=== PATIENT | female | born 1950 | race Caucasian/White ===

== ENCOUNTER 2017-07-08 06:43 | Emergency (ER) | payer MEDICARE ==
[~2017-07-08] VITALS: Ht 157.5 cm; Wt 87.1 kg
[~2017-07-08 06:43] MED LIST: LORT7.5T3 PO; Z.0.NO CURRENT MEDS
[2017-07-08 06:47] VITALS: BP 176/94; PULSE 94; RESP 18; TEMP 98.2; O2SAT 99
[2017-07-08] MEDS ORDERED: TYLE325T PO (07:05)
--- NOTE | 2017-07-08 07:08 | PD ---
HPI Chief Complaint: Cold / Flu Symptoms Time Seen by Provider: 07:03 Travel History International Travel<30 days: No Contact w/Intl Traveler<30days: No Traveled to known affect area: No History of Present Illness HPI 67-year-old female presents to the emergency department complaint of cough shortness of breath and wheezing for the past week to week and a half. Patient has not noticed a fever. Patient has had cough productive of collazo phlegm. Patient has prior history of bronchitis. Patient has history of hypothyroidism and is prescribed levothyroxine. Patient did not have the flu vaccine. Patient does not report any nausea vomiting abdominal pain diarrhea myalgias arthralgias dysuria frequency urgency. Patient only noticed chest discomfort with coughing. Patient denies tobacco use. PFSH Past Medical History Narrative Medical Bronchitis hypothyroidism; no surgeries; no tobacco use; nursing notes reviewed Medical History: Denies Significant Hx Diminished Hearing: No Immunizations Current: Yes Influenza Vaccination: No ?: Not Menopausal: Yes Past Surgical History Surgical History: No Previous Surgery Social History Alcohol Use: No Tobacco Use: No Substance Use: No Allergies-Medications (Allergen,Severity, Reaction): Coded Allergies: Sulfa (Sulfonamide Antibiotics) (Unverified Allergy, Intermediate, EYES SWOLLEN, 07/08/17) Reported Meds & Prescriptions Reported Meds & Active Scripts Active Zithromax Z-Tello (Azithromycin) 250 Mg Dspk 250 Mg PO DIRECTED 500 MG (2 tabs) day 1, then 1 tab days 2-5. Ventolin Hfa 18 GM Inh (Albuterol Sulfate) 90 Mcg/Act Aer 2 Puff INH Q4-6H PRN Medrol Dosepak (Methylprednisolone) 4 Mg Dspk 4 Mg PO DIRECTED Per Pharmacist direction Reported Tylenol (Acetaminophen) 325 Mg Tab 650 Mg PO Q4H PRN Narrative Medication Levothyroxine Review of Systems Except as stated in HPI: all other systems reviewed are Neg General / Constitutional: No: Fever, Chills HENT: Positive: Congestion Cardiovascular: Positive: Chest Pain or Discomfort (with cough) Respiratory: Positive: Cough, Shortness of Breath, Wheezing, No: Orthopnea, Hemoptysis, Pleuritic Pain Gastrointestinal: No: Nausea, Vomiting, Diarrhea, Abdominal Pain Genitourinary: No: Dysuria, Flank Pain Musculoskeletal: No: Myalgias, Arthralgias, Edema Skin: No Rash Neurologic: No: Weakness Psychiatric: No: Anxiety Hematologic/Lymphatic: No: Lymph Node Enlargement Physical Exam Narrative GENERAL: Well-developed well-nourished female no acute distress no respiratory distress SKIN: Warm and dry. HEAD: Normocephalic. EYES: No scleral icterus. No injection or drainage. ENT: Mucous membranes moist airway is patent NECK: Supple, trachea midline. No JVD or lymphadenopathy. CARDIOVASCULAR: Regular rate and rhythm without murmurs, gallops, or rubs. RESPIRATORY: Breath sounds equal bilaterally with few end expiratory wheezes. No accessory muscle use. GASTROINTESTINAL: Abdomen soft, non-tender, nondistended. MUSCULOSKELETAL: No cyanosis, or edema. BACK: Nontender without obvious deformity. No CVA tenderness. Data Data Last Documented VS Vital Signs Date Time Temp Pulse Resp B/P (MAP) Pulse Ox O2 Delivery O2 Flow Rate FiO2 07/08/17 06:47 98.2 94 18 176/94 (121) 99 Orders Orders Influenzae A/B Antigen (07/08/17 07:03) Chest, Single Ap (07/08/17 ) Albuterol-Ipratropium Neb (Duoneb Neb) (07/08/17 07:15) MDM Medical Decision Making Medical Screen Exam Complete: Yes Emergency Medical Condition: Yes Medical Record Reviewed: Yes Interpretation(s) influenza a/b ag: negative cxr: no lobar infiltrate Differential Diagnosis Bronchitis pneumonia influenza viral syndrome CHF Narrative Course Patient with productive cough of collazo sputum with shortness of breath and wheezing with prior history of bronchitis; specimens collected for influenza, chest x-ray and administered one-time dose of albuterol/ipratropium nebulized treatment. Lungs clear to auscultation post updraft patient is stable for outpatient management Diagnosis Primary Impression: Bronchitis Referrals: Primary Care Physician call for appointment Patient Instructions: General Instructions Additional Instructions: Increase fluid hydration Take medications as prescribed Follow-up with primary care provider Use inhaler as prescribed as needed for wheezing/cough/shortness of breath Return to the emergency department for any concerns or change in condition Med/Other Pt SpecificInfo: Prescription(s) given Scripts Azithromycin (Zithromax Z-Tello) 250 Mg Dspk 250 MG PO DIRECTED for Infection, #1 DSPK 0 Refills 500 MG (2 tabs) day 1, then 1 tab days 2-5. Prov: Salter,Mary H. MD 07/08/17 Albuterol 18 GM Inh (Ventolin Hfa 18 GM Inh) 90 Mcg/Act Aer 2 PUFF INH Q4-6H Y for SHORTNESS OF BREATH, #1 INHALER 0 Refills Prov: Mary Stevens MD 07/08/17 Methylprednisolone Dosepak (Medrol Dosepak) 4 Mg Dspk 4 MG PO DIRECTED, #1 DSPK 0 Refills Per Pharmacist direction Prov: Mary Stevens MD 07/08/17 Disposition: 01 DISCHARGE HOME Condition: Stable Mary Stevens MD Jul 08, 2017 07:08
[2017-07-08] MEDS ORDERED: VENTAER INH (07:15)
[2017-07-08] MEDS ORDERED: MEDR4PAK PO (07:15)
[2017-07-08] MEDS ORDERED: RESP: ALBUTEROL 2.5 MG/IPRATROPIUM 0.5 MG NEB (SCH) NEB ONE ×2 (07:15→07:30)
[2017-07-08] MEDS ORDERED: ZITHTAB PO (07:15)
--- NOTE | 2017-07-08 07:29 | RADRPT ---
EXAM DATE/TIME: 07/08/2017 07:04 [facility] COMPARISON: No previous studies available for comparison. INDICATIONS : Cough MEDICAL HISTORY : None. SURGICAL HISTORY : None. ENCOUNTER: Initial ACUITY: 1 week PAIN SCORE: 0/10 LOCATION: Bilateral chest FINDINGS: Lungs are hyperinflated. There is a calcified granuloma in the left upper lobe. Diffuse interstitial prominence is noted. No consolidating airspace changes or suspicious nodular densities. Heart and mediastinal structures are unremarkable. Osseous structures are intact. CONCLUSION: COPD with evidence of prior granulomatous disease. No evidence of acute cardiopulmonary process. Clifton Dietrich MD on July 08, 2017 at 7:25 Board Certified Radiologist. This report was verified electronically.
[2017-07-08] MEDS ORDERED: predniSONE 20 MG TAB PO ONE (07:30)
== END 2017-07-08 07:52 | disposition home or self-care (01) ==
LOC: PHED 06:43
DX: J40 Bronchitis, not specified as acute or chronic (principal)
CPT/HCPCS: 71045; 87804; 94640; 94664; 99284; J7512